=== PATIENT | female | born 1990 | race Caucasian/White ===

== ENCOUNTER 2018-08-02 06:38 | Inpatient (IN) ==
[2018-08-02] MEDS ORDERED: ONDANSETRON 4 MG/2 ML VIAL IV PRN ×2 (07:22→10:26)
[2018-08-02] MEDS ORDERED: MEPERIDINE 50 MG/1 ML VIAL IV PRN (07:22)
[2018-08-02] MEDS ORDERED: BUTORPHANOL 2 MG/ML VIAL IV PRN (07:22)
[2018-08-02] MEDS ORDERED: LACTATED RINGERS 500 ML IV PRN (07:22)
[2018-08-02] MEDS: LACTATED RINGERS 1,000 ML IV SCH ×2 (07:36→22:03)
[2018-08-02] MEDS: OXYTOCIN/LR 20 UNIT/1,000 ML BAG IV SCH (07:39)
[2018-08-02 07:41] LABS: Basophils % 0.3 % (0.0-0.8); Eosinophils # 0.1 10*3/uL (0.0-0.87); Eosinophils % 1.5 % (0.00-10.9); Hematocrit 35.9 VOL% (35.7-47.0); Hemoglobin 11.6 GM/DL (12.0-16.0); Immature Granulocytes % 1.2 %; Immature Granulocytes Absolute 0.11 #; Lymphocytes # 2.2 10*3/uL (1.4-4.0); Mean Corpuscular HGB Conc 32.3 GM/DL (32-36); Mean Corpuscular Hemoglobin 28 PG (27-34); Mean Corpuscular Volume 86.5 FL (87-102); Mean Platelet Volume 10.8 FL (9.6-12.0); Monocytes # 0.6 10*3/uL (0.11-0.8); Neutrophils # 6.5 10*3/uL (1.4-7.4); Platelet Count 158 T/CUMM (130-400); Red Blood Count 4.15 MC/CUMM (3.8-5.5); Red Cell Distribution Width 13.3 % (9.3-17.3); White Blood Count 9.6 T/CUMM (4-12)
[2018-08-02 08:04] LABS: Bilirubin,Total 0.4 MG/DL (0.2-1.0); Calcium 8.4 MG/DL (8.5-10.1); Osmolality,Calculated 265.2 MOS/KG (273-304); Potassium 4.1 MMOL/L (3.5-5.1); Uric Acid 5.5 MG/DL (2.6-6.0)
[2018-08-02] MEDS ORDERED: CITRIC ACID/SODIUM CITRATE 30 ML UDCUP PO ONE (09:00)
[2018-08-02] MEDS ORDERED: ePHEDrine 50 MG/ML AMP IV PRN (09:00)
[2018-08-02] MEDS ORDERED: LACTATED RINGERS 1,000 ML IV ONE (09:00)
[2018-08-02] MEDS ORDERED: diphenhydrAMINE 50 MG/1 ML VIAL IV PRN ×2 (09:00)
[2018-08-02] MEDS ORDERED: FAMOTIDINE 20 MG/2 ML VIAL IV ONE (09:00)
[2018-08-02] MEDS ORDERED: NALOXONE 0.4 MG/ML VIAL IV PRN (09:00)
[2018-08-02] MEDS ORDERED: OXYTOCIN/LR 20 UNIT/1,000 ML BAG IV ONE ×2 (10:03→10:26)
[2018-08-02] MEDS ORDERED: miSOPROStol 200 MCG TABLET ONE (10:03)
[2018-08-02] MEDS ORDERED: TRANEXAMIC ACID 1,000 MG/10 ML VIAL ONE (10:03)
[2018-08-02] MEDS ORDERED: CARBOPROST TROMETHAMINE 250 MCG/ML AMP IM ONE (10:04)
[2018-08-02] MEDS ORDERED: METHYLERGONOVINE 0.2 MG/1 ML AMP ONE (10:04)
[2018-08-02] MEDS ORDERED: LIDOCAINE 1% 50 ML VIAL ONE (10:04)
[2018-08-02] MEDS ORDERED: MEASLES/MUMPS/RUBELLA VACCINE 0.5 ML VIAL SUBCUT ONE (10:26)
[2018-08-02] MEDS ORDERED: DIPH/TET/ACEL PERT BOOSTER VACCINE 0.5 ML VIAL IM ONE (10:26)
[2018-08-02] MEDS ORDERED: HYDROCORTISONE 2.5% RECTAL CREAM 30 GM TUBE TOP PRN (10:26)
[2018-08-02] MEDS ORDERED: BISACODYL 10 MG SUPP RECTAL PRN (10:26)
[2018-08-02] MEDS ORDERED: BENZOCAINE 20%/MENTHOL 0.5% SPRAY 56 GM CAN TOP PRN (10:26)
[2018-08-02] MEDS ORDERED: WITCH HAZEL PADS 100/JAR TOP PRN (10:26)
[2018-08-02] MEDS ORDERED: ACETAMINOPHEN 325 MG TABLET PO PRN (10:26)
[2018-08-02] MEDS ORDERED: LANOLIN 50% CREAM 0.3 OZ TUBE TOP PRN (10:26)
[2018-08-02] MEDS ORDERED: RHO(D) IMMUNE GLOBULIN 300 MCG SYRINGE IM ONE (10:26)
[2018-08-02] MEDS ORDERED: oxyCODONE/ACETAMINOPHEN 5-325 MG TABLET PO PRN ×2 (10:26)
[2018-08-02 10:32] LABS: Cord Arterial Blood HCO3 22.9 MMOL/L
[2018-08-02 10:35] LABS: Cord Venous Blood HCO3 24.1 MMOL/L; Cord Venous Blood PCO2 38.9 MMHG; Cord Venous Blood PO2 39.8
[2018-08-02] MEDS: DOCUSATE SODIUM 100 MG CAPSULE PO SCH (22:03)
[2018-08-02] MEDS: IBUPROFEN 800 MG TABLET PO PRN (22:03)
[2018-08-02] MEDS: fentaNYL 2 MCG/ROPIV 0.2% EPID 100 ML EPIDURAL SCH (22:04)
[2018-08-03] MEDS: IBUPROFEN 800 MG TABLET PO PRN ×2 (03:38→20:19)
[2018-08-03] MEDS: LACTATED RINGERS 1,000 ML IV SCH ×2 (04:10→20:23)
[2018-08-03 05:00] LABS: Basophils % 0.3 % (0.0-0.8); Eosinophils # 0.2 10*3/uL (0.0-0.87); Eosinophils % 1.6 % (0.00-10.9); Hematocrit 31.7 VOL% (35.7-47.0); Hemoglobin 9.9 GM/DL (12.0-16.0); Immature Granulocytes % 1.6 %; Immature Granulocytes Absolute 0.15 #; Lymphocytes # 2.3 10*3/uL (1.4-4.0); Lymphocytes % 24.1 % (21.3-54.2); Mean Corpuscular HGB Conc 31.2 GM/DL (32-36); Mean Corpuscular Hemoglobin 27 PG (27-34); Mean Corpuscular Volume 87.6 FL (87-102); Mean Platelet Volume 11.3 FL (9.6-12.0); Monocytes # 0.7 10*3/uL (0.11-0.8); Monocytes % 6.9 % (1.7-12.7); Neutrophils # 6.2 10*3/uL (1.4-7.4); Neutrophils % 65.5 % (38.7-73.9); Platelet Count 156 T/CUMM (130-400); Red Blood Count 3.62 MC/CUMM (3.8-5.5); Red Cell Distribution Width 13.5 % (9.3-17.3); White Blood Count 9.4 T/CUMM (4-12)
[2018-08-03] MEDS: DOCUSATE SODIUM 100 MG CAPSULE PO SCH ×2 (09:23→20:19)
[2018-08-03] MEDS: OXYTOCIN/LR 20 UNIT/1,000 ML BAG IV SCH (20:20)
[2018-08-03] MEDS: fentaNYL 2 MCG/ROPIV 0.2% EPID 100 ML EPIDURAL SCH (20:21)
[2018-08-04 07:14] VITALS: BP 109/67
[2018-08-04] MEDS: DOCUSATE SODIUM 100 MG CAPSULE PO SCH (08:26)
[2018-08-04] MEDS: IBUPROFEN 800 MG TABLET PO PRN (08:28)
== END 2018-08-04 12:10 | disposition home or self-care (01) | DRG 560 ==
LOC: N.LDOUT 06:38 → N.LD 06:41 → N.OB 13:08
PROVIDERS: ADMIT Obstetrics & Gynecology; ATTEND Obstetrics & Gynecology